=== PATIENT | male | born 2005 | race African-American/Black ===

== ENCOUNTER 2024-02-07 18:06 | Emergency (ER) | payer SELFPAY ==
[2024-02-07 18:09] VITALS: BP 149/78; PULSE 73; RESP 18; TEMP 36.4; O2SAT 99; BMI 41.3
--- NOTE | 2024-02-07 19:09 | EDS_ITS ---
HPI HPI - Psych History of Present Illness Chief Complaint: Suicidal Informant: patient Onset/Context/Timing Onset: Days Context: Gradual Onset Conflict: Family and - (College finances.) Timing: Intermittent Current Severity: Mild Maximum Severity: Mild Worsened by: Situational factors Associated Symptoms Associated Symptoms - Psych: Positive for Depressed and Suicidal Thoughts Specific plan (suicidal thought): No specific plan. 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 Goes to therapy sessions. Currently on no antidepressant or antipsychotic medications. Recently has had issues with their college financial services education consultant. Because discourse between the patient and his mother. He has been having feelings of self-harm. He did cause very superficial lacerations to right forearm. No actual suicide attempt. No prior attempt. Thinks he may have been institutionalized as a younger child but nothing recently. Prior similar symptoms: Yes Recent Illness/Hospitalization: No PFSH PFSH Medical History no medical history Home Medications ?Medication ?Instructions ?Recorded ?Last Taken ?Type estradiol 2 mg tablet (Estrace) 2 mg PO BID 02/07/24 Unknown History finasteride 5 mg tablet 5 mg PO DAILY 02/07/24 Unknown History Allergy/AdvReac Type Severity Reaction Status Date / Time tomato AdvReac Mild Hives Verified 02/07/24 18:13 Surgical History no surgical history Social History Smoking Status: Never smoker ROS ROS ED ROS Narrative Denies recent illness. Constitutional Constitutional ED: Denies chills or fever(s) Eyes Eyes: Denies blurry vision ENT ENT ED: Denies ear pain Cardiovascular Cardiovascular: Denies chest pain Respiratory/Chest Respiratory/Chest: Denies cough Gastrointestinal Gastrointestinal: Denies abdominal pain Genitourinary Genitourinary ED: Denies dysuria or hematuria Musculoskeletal Musculoskeletal: Denies arthralgias Integumentary Denies abscess Neurologic Neurologic: Denies headache(s) Psychiatric Psychiatric: Reports anxiety, depression, suicidal ideation and suicidal thoughts Endocrine Endocrinology: Denies polydipsia Hematologic/Lymphatic Hematologic/Lymphatic: Denies easy bleeding Allergic/Immunologic Allergic/Immunologic ED: Denies mouth swelling EXAM Physical Exam Narrative Exam Narrative: 18-year-old biological male vital signs are stable afebrile. H EENT exam unremarkable atraumatic. Pupils round reactive light. No signs of trauma. Neck nontender no trauma. Lungs clear to auscultation bilaterally. Heart regular rate and rhythm rate about 70 no murmur. Chest wall ribs nontender. Abdomen soft nontender. Moving all 4 extremities. Normal strength. Normal range of motion. Very superficial abrasions running linear abdominal palmar aspect of the forearm. No significant laceration. No bleeding or infection. Normal bilateral ticket collector strength. Back nontender. Neurologically patient is awake and alert no focal motor deficits. Does make eye contact. Is calm currently answering questions and following commands. Const Vital Signs: 02/07/24 18:09 02/07/24 20:00 Temperature 97.6 F L Temperature Source Oral Pulse Rate 73 86 Respiratory Rate 18 14 Blood Pressure 149/78 H Blood Pressure Mean 101 Pulse Ox 99 98 Oxygen Delivery Method Room Air Positive well nourished and well developed; Negative for cachectic, contractures or unkempt General Appearance ED: well developed and NAD; Negative for unkempt, cachectic, contractures or pallor Nutritional Appearance: Negative for cachectic HEENT Reports moist mucous membranes normocephalic and atraumatic Eyes PERRL and EOMs intact bilaterally General Eye ED: Negative for pale conjunctiva or scleral icterus Neck no lymphadenopathy, supple and no JVD General: Negative for tenderness Resp normal respiratory effort and clear to auscultation bilaterally Auscultation: Negative for rales, rhonchi, wheezes or diminished lung sounds Cardio S1 normal heart sound, S2 normal heart sound and no murmurs Palpation: Negative for other Rate: regular rate Rhythm: regular rhythm GI non-tender, non-distended and no masses Auscultation: normoactive bowel sounds Palpation: soft; Negative for tender or guarding Back/Spine no CVA tenderness General Back: Negative for CVA tenderness Cervical Spine: Negative for cervical spine tenderness Thoracic Spine / Upper Back: Negative for thoracic spinal tenderness Lumbar Spine / Lower Back: Negative for lumbar spinal tenderness Coccyx: Negative for other Extremity normal to inspection General Extremety ED: Negative for edema or tenderness General Extremity: Negative for edema Neuro oriented x3 and CN's II-XII intact bilaterally Sensorium / Orientation: alert, oriented to person, oriented to place and oriented to time; Negative for orientation impaired or confused Motor Exam: strength 5/5 throughout Psych mental status grossly normal, cooperative, speech normal, activity/motor behavior normal, denies hallucinations and denies homicidal ideation Appearance: grossly normal; Negative for unkempt Attitude: calm Activity / Motor Behavior: appropriate eye contact Speech: normal speech Mood & Affect: depressed Thought Process: normal thought process Thought Content: normal thought content Attention / Concentration: attention grossly intact Memory / Cognition: memory grossly intact Insight: insight good Judgement: judgement good Skin General Skin Exam: Negative for jaundice or pallor Lesions: no lesions Rashes: no rashes Trauma: Negative for abrasion Wounds: Negative for amputation MDM MDM MDM Narrative Medical decision making narrative: 18-year-old biological male transitioning to female history of underlying psychiatric illness. No significant prior suicide attempt. He is depressed due to financial services education consultant issues at the college and then discourse currently between he and his mother. Did some cutting of his right forearm. Exam benign. Social service evaluation. After nursing home social worker evaluation I spoke to our social workers around 820. Patient told them that this has been escalating. He is feeling worse. And they are concerned he is a threat to harm himself or attempt to commit suicide and feel he needs to be admitted. Mental health labs to be obtained. Crisis will be consulted for placement. Repeat exam patient doing well at 9:40 PM. Will be turned over to overnight physician awaiting crisis evaluation and placement. History & Record Review Discussion w/independent historian: Patient Lab Data Attestation: I reviewed the patient's lab results. Lab results narrative: CBC shows a white count of 6. H&H 11.6 and 35. Platelets 242. Electrolytes show gap 5. Normal BUN of 12 creatinine 0.6. Glucose 126. Tox screen positive for cannabis. Alcohol negative. Labs: Laboratory Results - last 24 hr 02/07/24 02/07/24 18:53 19:15 WBC 6.4 RBC 4.25 L Hgb 11.6 L Hct 35.7 L MCV 84.0 MCH 27.3 MCHC 32.5 RDW Std Deviation 39.2 RDW Coeff of Dar 12.8 Plt Count 242 MPV 10.5 Immature Gran % (Auto) 0.300 Neut % (Auto) 50.9 Lymph % (Auto) 35.6 [place] % (Auto) 8.8 Eos % (Auto) 3.8 Baso % (Auto) 0.6 Absolute Neuts (auto) 3.3 Absolute Lymphs (auto) 2.27 Nucleated RBC % 0 Sodium 139 Potassium 3.5 Chloride 107 Carbon Dioxide 27.0 Anion Gap 5 BUN 12 Creatinine 0.65 L Estim Creat Clear Calc 268.54 Est GFR (MDRD) Af Amer 199 Est GFR (MDRD) Non-Af 165 BUN/Creatinine Ratio 18.3 Glucose 126 H Calcium 8.7 Urine Opiates Screen NEGATIVE Urine Methadone Screen NEGATIVE Ur Barbiturates Screen NEGATIVE Ur Phencyclidine Scrn NEGATIVE Ur Amphetamines Screen NEGATIVE MDMA (Ecstasy) Screen NEGATIVE U Benzodiazepines Scrn NEGATIVE Urine Cocaine Screen NEGATIVE U Cannabinoids Screen POSITIVE H Ur Drug Screen Comment Ethyl Alcohol < 3.0 Discharge Plan Triage Chief Complaint: Suicidal ED Provider: Niko Wang Dx/Rx/DC Orders Clinical Impression: Depression, Depression with suicidal ideation Prescriptions: No Action finasteride 5 mg tablet 5 mg PO DAILY estradiol [Estrace] 2 mg tablet 2 mg PO BID Primary Care Provider: Care Physician,No Primary Referrals: Care Physician,No Primary [Primary Care Provider] - Print Language: Croatian Disposition Disposition: Psychiatric Hospital or Unit
[2024-02-07 20:00] VITALS: PULSE 86; RESP 14; O2SAT 98
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
[2024-02-07 20:35] LABS: Absolute Lymphocyte Count 2.27 X10^3/uL (0.83-4.51); Absolute Neutrophil Count 3.3 X10^3/uL (2.0-7.7); Basophil# 0.04 X10^3/uL; Basophil% 0.6 % (0-1); Eosinophil# 0.24 X10^3/uL; Eosinophils% 3.8 % (0-5); Hematocrit 35.7 % (40-54); Hemoglobin 11.6 g/dL (13.0-16.5); Lymphocyte # 2.27 X10^3/ul (0.83-4.51); Lymphocyte % 35.6 % (19-41); Mean Corp Hgb Conc 32.5 g/dL (32-36); Mean Corpuscular Hgb 27.3 pg (27.0-32.0); Mean Platelet Vol. 10.5 fl (6.2-12.0); Monocyte# 0.56 X10^3/uL; Monocyte% 8.8 % (0-10); NRBC Flagged by Analyzer 0 % (0-5); Neutrophil # 3.25 X10^3/uL (2.7-7.7); Neutrophil % 50.9 % (47-70); Platelet Count 242 K/mm3 (150-450); RBC Distribution Width CV 12.8 % (11.6-14.6); RBC Distribution Width SD 39.2 fl (35.1-43.9); Red Blood Count 4.25 M/mm3 (4.6-6.2); White Blood Count 6.4 K/mm3 (4.4-11.0)
[2024-02-07 20:57] LABS: Alcohol, Blood (Medical)-Serum < 3.0 mg/dL
[2024-02-07 20:58] LABS: Anion Gap 5 (5-15); BUN 12 mg/dL (7-18); BUN/Creat Ratio 18.3 RATIO (10-20); Calcium,Total 8.7 mg/dL (8.5-10.1); Chloride 107 mmol/L (98-107); Creatinine, Serum 0.65 mg/dL (0.70-1.30); EST Glomerular Filtration Rate 165 mL/min (>60); Est Glom Filt Rate - Afr Amer 199 mL/min (>60); Estimated Creatinine Clearance 268.54 ml/min; Glucose 126 mg/dL (74-106); Potassium 3.5 mmol/L (3.5-5.1); Sodium Level 139 mmol/L (136-145)
[2024-02-07 21:00] LABS: Amphetamine Urine VISTA NEGATIVE (<1000 ng/mL); Barbiturate Urine VISTA NEGATIVE (< 200 ng/mL); Benzodiazepine Urine VISTA NEGATIVE (< 200 ng/mL); Cocaine Urine VISTA NEGATIVE (< 300 ng/mL); Ecstacy Urine VISTA NEGATIVE (< 500 ng/mL); Methadone Urine VISTA NEGATIVE (< 300 ng/mL); PCP Urine VISTA NEGATIVE (< 25 ng/mL); THC Urine VISTA POSITIVE (< 50 ng/mL); Vista UDS pH Range 5
--- NOTE | 2024-02-07 21:37 | ED.RN ---
MEDICAL WORK UP FAXED TO CRISIS
[2024-02-08 05:00] VITALS: BP 117/72; PULSE 70; RESP 14; O2SAT 100
--- NOTE | 2024-02-08 09:00 | CM.ED ---
Social Work SW was notified this morning by charge nurse that [facility] had notified nursing that patients insurance was not active. SW contacted the [facility] to determine if they had an active insurance card on file. [facility] which matched information given to [facility]. SW called [facility] to determine if patient had been accepted at any hospitals for inpatient treatment. Latrice at crisis notified that she had verified that patients insurance was no longer active, and due to having no insurance patient had been referred to [facility]. Plam: inpatient hospitalization pending acceptance Ghada Silveira, CORPORATE GENERAL MANAGER, PAIN MEDICINE PHYSICIAN
[2024-02-08] MEDS: Finasteride 5 MG Tablet PO (09:25)
[2024-02-08] MEDS: Estradiol 1 MG Tablet 2 MG PO ×3 (09:25→22:22)
--- NOTE | 2024-02-08 09:33 | CM.ED ---
Social Work SW was notified
[2024-02-08 13:00] VITALS: BP 123/89; PULSE 78
--- NOTE | 2024-02-08 14:24 | EKG12_ITS ---
Test Reason : Blood Pressure : */* mmHG Vent. Rate : 68 BPM Atrial Rate : 68 BPM P-R Int : 184 ms QRS Dur : 100 ms QT Int : 388 ms P-R-T Axes : 41 57 57 degrees QTcB Int : 412 ms Normal sinus rhythm Normal ECG Confirmed by Shelton Mendes ([id number]), editor news SAVAGE NYE ([id number]) on 02/09/2024 10:45:54 AM Referred By: Confirmed By: Shelton Mendes
--- NOTE | 2024-02-08 14:48 | CM.ED ---
Social Work contacted Jono at Crisis for update on placement, Jono stated he would contact [facility] and call back with update. Ghada Silveira, AIR TOOL OPERATOR, CARRIAGE DOGGER
--- NOTE | 2024-02-08 16:56 | CM.ED ---
Social Work Called Jono at [facility], at 1615 to check on status of referral to [place], as this insurance writer and Ghada ARORA going to room to update patient and check in for update. Jono pardo was told at 1420 by [facility] that patient is accepted pending EKG and that it was Shai' understanding that [facility] was to speak directly with [facility]. Checked in with nursing and EKG was completed and sent to [facility]. Sanaz refaxed EKG to [facility], and at Jono's request to [facility], as this insurance writer asked Jono to follow up with [facility] on status of referral. Jono would like EKG in case needed. Met with patient in room. Checked in on how patient is doing. Patient more talkative, bright affect, and smiling this date. Does report to feel an improved mood compared to yesterday. Reports has reached out to her brother to update to what is happening, but has not spoken to patient's mother. Discussed plan for admission, likely to [facility], based on events leading up to ED presentation yesterday, and not yet evaluated for medications. Discussed concern that should patient go home without evaluation by a psychiatrist/additional interventions, that may be back in the same situation/response as what brought patient into the hospital yesterday. Patient nodded head in agreement that this could happen and understanding about staying the course with hospitalization. -Patient reported that was hoping to get a shower. Discussed with patient that will talk with nursing staff about this possibility, should patient not be able to leave this evening. Patient accepting. This insurance writer spoke with [place] flight information expediter about this request. -Discussed also patient's indigent status, that [facility] is covered by [facility] [employer]. Obtained a HCAP application from registration for [facility] ED stay. Patient to work on completion and give back to nursing. Qi, a mental health therapist at the [facility] called to check on status. MAITE Urrutia spoke with Qi to update. Qi supportive of patient receiving inpatient support. Plan: Awaiting final acceptance by [facility]. -KATHRYN Wright
--- NOTE | 2024-02-08 17:40 | CM.ED ---
Social Work Roz from [facility] called to accept patient. Admitting physician Dr. Kasper, nurse to nurse [phone] ext [phone]. If patient able to get to [facility] by 9:00 pm, she may be admitted tonight, if not patient may admit tomorrow. All information given to unit support representative. SW updated [facility] resource center of patients pending transfer. Ghada Silveira, BANQUET ATTENDANT, TRUCK UNLOADER
[2024-02-08 21:00] VITALS: BP 125/63; PULSE 68; RESP 18; O2SAT 100
[2024-02-09 05:00] VITALS: BP 99/57; PULSE 68; RESP 16; TEMP 36.5; O2SAT 96
[2024-02-09 05:32] VITALS: BP 99/57; PULSE 68; RESP 16; TEMP 36.5; O2SAT 96
--- NOTE | 2024-02-09 05:35 | ED.RN ---
Lacy given report on patient, spoke with rFanci, no further questions at this time.
[2024-02-09] MEDS: Estradiol 1 MG Tablet 2 MG PO (06:23)
== END 2024-02-09 07:42 ==
PROVIDERS: Emergency Provider Emergency Medicine; Visit Provider Emergency Medicine
DX: R45.851 Suicidal ideations (principal); F32.A Depression, unspecified; F64.0 Transsexualism
CPT/HCPCS: 36415; 80048; 80307; 82077; 85025; 93005; 99285